=== PATIENT | female | born 1990 | race Caucasian/White ===

== ENCOUNTER 2021-05-07 15:10 | Emergency (ER) | payer OTHER ==
[~2021-05-07] VITALS: Ht 170.2 cm; Wt 86.2 kg
[2021-05-07] MEDS ORDERED: NEXPLANON68 MG SUBQ (15:26)
[2021-05-07 16:33] LABS: URINE BILIRUBIN NEGATIVE (Negative); URINE BLOOD TRACE (Negative); URINE CLARITY CLEAR; URINE COLOR YELLOW; URINE GLUCOSE-RANDOM NEGATIVE (Negative); URINE KETONES 1+ (Negative); URINE LEUKOCYTES NEGATIVE (Negative); URINE LEUKOCYTES-REFLEX NEGATIVE (Negative); URINE NITRITE NEGATIVE (Negative); URINE NITRITE-REFLEX NEGATIVE (Negative); URINE PROTEIN NEGATIVE (Negative); URINE SPECIFIC GRAVITY 1.015 (1.005-1.030); URINE UROBILINOGEN 0.2 E.U./dl (0.2-1.0)
[2021-05-07 16:43] LABS: ABSOLUTE BASOPHILS 0.1 thou/uL (0.0-0.2); ABSOLUTE EOSINOPHILS 0.2 thou/uL (0.0-0.7); ABSOLUTE LYMPHOCYTES 2.1 thou/uL (0.8-5.3); ABSOLUTE MONOCYTES 1.4 thou/uL (0.0-1.2); ABSOLUTE NEUTROPHILS 10.9 thou/uL (1.6-8.1); BASOPHILS 0.5 %; EOSINOPHILS 1.2 %; HEMATOCRIT 42.9 % (37.0-47.0); HEMOGLOBIN 14.3 gm/dL (12.0-15.0); LYMPHOCYTES 14.1 %; MCH 29.9 pg (26.0-34.0); MCHC 33.3 g/dL (28.0-37.0); MCV 89.8 fL (80.0-100.0); MONOCYTES 9.4 %; MPV 8.2 fl. (7.2-11.1); NUCLEATED RBCS 0 /100WBC; PLATELET COUNT* 373 thou/uL (150-400); POLYS 74.8 %; RBC 4.78 mil/uL (4.20-5.00); RDW-CV 12.9 % (10.5-14.5); WBC 14.6 thou/uL (4.0-11.0)
[2021-05-07 16:49] LABS: CALCIUM 8.9 mg/dL (8.5-10.1); CREATININE 0.9 mg/dL (0.6-1.3); POTASSIUM 3.8 mmol/L (3.5-5.1)
[2021-05-07 17:02] LABS: ALBUMIN 4.2 g/dL (3.4-5.0); TOTAL BILIRUBIN 0.7 mg/dL (<0.1-1.0); TOTAL PROTEIN 8.4 g/dL (6.4-8.2)
[2021-05-07] MEDS ORDERED: CIPRO500 M1 PO (18:38)
[2021-05-07] MEDS ORDERED: METRONIDAZOLE500 M4 PO (18:38)
[2021-05-07 19:18] VITALS: BP 126/92
== END 2021-05-07 19:18 | disposition home or self-care (01) ==
LOC: M.ERS 15:10
PROVIDERS: Physician Assistant
DX: K57.32 Diverticulitis of large intestine without perforation or abscess without bleeding (principal); Z79.899 Other long term (current) drug therapy